=== PATIENT | female | born 2000 | race Caucasian/White ===

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

== ENCOUNTER 2018-01-12 15:19 | Emergency (ER) | payer OTHER ==
[~2018-01-12] VITALS: Ht 170.1 cm; Wt 105.2 kg
[~2018-01-12 15:19] MED LIST changes: +OMNICEF300 MG PO
[2018-01-12] MEDS ORDERED: TRILEPTAL300 MG PO (15:22)
[2018-01-12] MEDS ORDERED: BENTYL PO (15:23)
[2018-01-12] MEDS ORDERED: VISTARIL50 MG PO (15:23)
[2018-01-12] MEDS ORDERED: PROTONIX40 MG PO (15:23)
[2018-01-12] MEDS ORDERED: Zofran4 MG SL (15:24)
[2018-01-12] MEDS ORDERED: CLARITIN10 MG PO (15:24)
[2018-01-12] MEDS ORDERED: ROBAXIN500 M1 PO (17:42)
== END 2018-01-12 17:43 | disposition home or self-care (01) ==
LOC: ED 15:19
DX: S09.90XA Unspecified injury of head, initial encounter (principal); M62.838 Other muscle spasm; M54.2 Cervicalgia; Z88.1 Allergy status to other antibiotic agents; Z88.6 Allergy status to analgesic agent; Z79.899 Other long term (current) drug therapy; V89.2XXA Person injured in unspecified motor-vehicle accident, traffic, initial encounter; Y93.89 Activity, other specified; Y92.488 Other paved roadways as the place of occurrence of the external cause; Y99.8 Other external cause status